=== PATIENT | female | born 1985 | race Asian ===

== ENCOUNTER → 2018-01-20 16:54 | Outpatient (CLI) | payer MEDICAID, SELFPAY ==
[2018-01-20 17:32] LABS: Free T3 3.7 pg/mL (2.18-3.98); T4 Free Direct 1.43 ng/dL (0.76-1.46); Thyroid Stim Hormone (TSH) 0.03 uIU/mL (0.358-3.74)
== END ==
PROVIDERS: Referring Provider Nurse Practitioner; Visit Provider Nurse Practitioner
DX: E03.9 Hypothyroidism, unspecified (principal)
CPT/HCPCS: 36415; 84439; 84443; 84481

== ENCOUNTER → 2018-01-25 13:52 | Outpatient (CLI) | payer MEDICAID, SELFPAY ==
--- NOTE | 2018-01-25 14:18 | US_ITS ---
STUDY: THYROID ULTRASOUND REASON FOR EXAM: Female, 32 years old. Thyromegaly. TECHNIQUE: Ultrasound evaluation of the thyroid was performed with real-time and static sauceda-scale imaging. COMPARISON: None. FINDINGS: RIGHT LOBE: The right thyroid measures 28 x 13 x 16 mm. Background echotexture is mildly heterogeneous. Vascularity is normal. The gland is not enlarged. There are 2 solid thyroid nodules, measuring 3 x 3 x 4 mm (mid polar) and 6 x 6 x 6 mm (superior pole), mildly heterogeneous echotexture, intranodular and Perinodular vascular flow, only minimally irregular margins. LEFT LOBE: The left thyroid measures 25 x 10 x 12 mm, not enlarged. Back and echotexture is mildly heterogeneous. Vascularity is normal. Solitary mid polar nodule solid, smooth margins, oval, with intranodular vascular flow, 4 x 3 x 6 mm. ISTHMUS: The isthmus measures 2 mm, normal echotexture. . US/Thyroid IMPRESSION: The thyroid gland is not enlarged. There is generalized mildly heterogeneous echotexture of the gland which could reflect sequela from thyroiditis. Acutely the gland exhibits normal vascular flow. Small bilateral thyroid nodules are present. Based on the [place] [employer] Guidelines for assessment of thyroid nodules, the solid low-density circumscribed nodules fall into the Intermediate Suspicion pattern and based on size criteria of the Intermediate Suspicion pattern, biopsy is not immediately indicated until the nodules are greater than or equal to 1 cm in size. Therefore, follow-up surveillance imaging would be most appropriate in 6 months to one year. Electronically Signed: Jaguar Daniel, at 16:16 EDT Tel , Service support ,
== END ==
PROVIDERS: Referring Provider Nurse Practitioner; Visit Provider Nurse Practitioner
DX: R94.6 Abnormal results of thyroid function studies (principal)
CPT/HCPCS: 76536

== ENCOUNTER → 2019-07-05 07:39 | Outpatient (CLI) | payer OTHER, SELFPAY ==
--- NOTE | 2019-07-05 07:44 | US_ITS ---
STUDY: THYROID ULTRASOUND REASON FOR EXAM: Female, 33 years old. NON TOXIC MULTI NOD GOITER TECHNIQUE: Ultrasound evaluation of the thyroid was performed with real-time and static sauceda-scale imaging. COMPARISON: Thyroid ultrasound January 25, 2018. FINDINGS: RIGHT LOBE: The right lobe of the thyroid gland measures 3.4 x 1.2 x 1.2 cm. There is a homogeneous echotexture. Allowing for interobserver variability, there is a stable 3.4 x 3.9 x 4.5 mm mildly hypoechoic nodule in the posterior upper to mid pole. A mildly irregular shaped 4.7 x 3.8 x 3.1 mm hypoechoic lesion is noted at the confluence of the right lobe to the thyroid isthmus. The 6 mm superior pole nodule seen on prior study is not clearly evident here. LEFT LOBE: The left lobe of the thyroid gland measures 9 x 1.3 x 1.0 cm. There is a homogeneous echotexture. A heterogeneous 4.3 x 3.8 x 3.9 mm solid nodule seen at the tip of the lower pole, not clearly evident on the prior study. The 6 mm nodule seen on previous exam was closer to the thyroid isthmus, and is only faintly suggested here. ISTHMUS: The isthmus measures 2.0 mm. The regional lymph nodes are normal. The right parathyroid or combined lobes of the parathyroid is incidentally visualized, measuring 2.0 x 1.0 x 0.5 cm. The left parathyroid is not demonstrated. US/Thyroid IMPRESSION: 1. Small bilateral thyroid nodules again identified, although not all were seen on previous exam, and some seen on previous study are not evident today. The findings remain consistent with a goiter, and one year annual follow-up is recommended. 2. Incidental note of a 2 cm hypoechoic structure posterior to the right lobe, presumed to be the enlarged right parathyroid. Electronically Signed: Jama Aparicio MD at 16:55 EDT , Service support ,
== END ==
DX: E04.2 Nontoxic multinodular goiter (principal)
CPT/HCPCS: 76536

== ENCOUNTER → 2019-11-11 09:40 | Outpatient (CLI) | payer OTHER, SELFPAY ==
[2019-11-11 11:17] LABS: Glucose 75GTT - Fasting 81 mg/dL (70-99)
[2019-11-11 11:17] LABS: Glucose 75GTT - 30 minutes 116 mg/dL (100-160)
[2019-11-11 11:19] LABS: T4 Free Direct 1.29 ng/dL (0.76-1.46); Thyroid Stim Hormone (TSH) 1.16 uIU/mL (0.358-3.74)
[2019-11-11 12:19] LABS: Glucose 75GTT - 60 minutes 83 mg/dL (100-160)
[2019-11-11 13:04] LABS: Glucose 75GTT - 120 minutes 92 mg/dL (70-140)
== END ==
DX: E03.9 Hypothyroidism, unspecified (principal); R73.09 Other abnormal glucose
CPT/HCPCS: 36415; 82951; 82952; 84439; 84443

== ENCOUNTER → 2023-06-15 | Outpatient (CLI) | payer MEDICAID, SELFPAY ==
--- OUTSIDE RECORDS SUMMARY | 2023-06-15 12:37 | XMS RPT_ITS | CCD ---
Author Name Unknown Address [address] [place] [address] Organization [facility] Care Team Providers Care Char Puller Name Role Phone Jj MARSHALL, Nic Aguilera Unavailable [phone] Pierre MARSHALL, [facility] Provide r AMIRNENI, [facility] Primary Care Unavail able AMIRNENI, [facility] [place] Attending Unavail able [facility] Attending Unavail able AMIRNENI, [facility] Primary Care Unavail able [facility] Care Unavail able AMIRNENI, [facility] [place] Attending Unavail able AMIRNENI, [facility] Attending Unavail able AMIRNENI, [facility] Primary Care Unavail able AMIRNENI, [facility] [place] Attending Unavail able AMIRNENI, [facility] [place] [facility] Primary Care Unavail able AMIRNENI, [facility] Primary Care Unavail able AMIRNENI, [facility] Attending Unavail able DOROTA CORDON Attending Unavailable SELF, SELF Referring Unavailable JONO NORTH Attending Unavailable AMIRNENI, [facility] Primary Care Unavailable SELF, SELF Referring Unavailable JONO NORTH Referring Unavailable JONO NORTH Attending Unavailable AMIRNENI, [facility] [place] Primary Care Unavailable Pierre MARSHALL, [facility] [place] Primary Care Provider Nic Gardner MD Unavailable Pierre MARSHALL, [facility] [place] [place] Primary Care Provide r PIERRE, [facility] Primary Care Unavail able AMIRNENI, ANA BECERRIL Referring Unavail able AMIRNENI, ANA BECERRIL Admitting Unavail able EMILY SNYDER Attending Unavailable JOLENERNEJOSEPHINE, ANA BECERRIL Primary Care Unavail able AMIRNENI, ANA STOKESNA Admitting Unavail able AMIRNENI, ANA BECERRIL Primary Care Unavail able AMIRNEJOSEPHINE, ANA BECERRIL Attending Unavail able AMIRNENI, ANA BECERRIL Referring Unavail able [facility] [employer] Attending Unavailable Allyson [employer], Dorota Referring Unavailable JANICE GUZMÁN Referring Unavailable Medications Current Medications Medication Drug Class(es) Dates Sig (Normalized) Sig (Original) clobetasol propionate 0.5 mg/ml topical cream (7 sources) Corticosteroid Start: 08-06-2021 clobetasoL (TEMOVATE) 0.05 % cream APPLY A THIN LAYER OF CREAM TOPICALLY TO AFFECTED AREA TWICE DAILY FOR 14 DAYS THEN 4 TIMES WEEKLY FOR MAINTANCE 0 08/06/2021 Active docusate sodium 100 mg oral capsule (7 sources) Start: 09-24-2021 take 1 capsule by mouth twice daily as needed for constipation docusate sodium (COLACE) 100 MG capsule Take 1 (one) capsule (100 mg total) by mouth 2 (two) times a day as needed for constipation . 180 capsule 3 09/24/2021 Active ketoconazole 20 mg/ml medicated shampoo (7 sources) Azole Antifungal Start: 07-03-2021 ketoconazole (NIZORAL) 2 % shampoo WASH DAILY DIRECTED 0 07/03/2021 Active levothyroxine sodium 0.075 mg oral tablet (20 sources) l-Thyroxine Start: 01-19-2023 take 1 tablet by mouth once daily levothyroxine (SYNTHROID, LEVOTHROID) 75 MCG tablet Take 1 (one) tablet (75 mcg total) by mouth once daily . 30 tablet 0 01/19/2023 Active Completed/Discontinued Medications Medication Drug Class(es) Dates Sig (Normalized) Sig (Original) 24 hr metFORMIN hydrochloride 750 mg extended release oral tablet (1 source) Biguanide Start: 11-13-2015 End: 08-15-2020 take 1 tablet by mouth every twenty-four hours metFORMIN (GLUCOPHAGE XR) 750 MG 24 hr tablet Take 750 mg by mouth. 0 11/13/2015 08/15/2020 Discontinued multivitamin (multivitamin) per tablet (4 sources) End: 03-26-2021 take 1 tablet by mouth once daily multivitamin (multivitamin) per tablet Take 1 tablet by mouth daily. 0 03/26/2021 Discontinued Problems Active Problems Problem Classification Problem Date Documented Date Episodic/Chronic Genitourinary symptoms and ill-defined conditions (4 sources) Dysuria; Translations: [Hematuria, unspecified] Onset: 12-10-2021 Episodic Immunizations and screening for infectious disease (3 sources) Patient encounter status; Translations: [Encounter for screening for human immunodeficiency virus [HIV]] Onset: 06-25-2022 Episodic Other connective tissue disease (1 source) Myalgia/myositis - lower leg; Translations: [Myalgia, other site] Episodic Other connective tissue disease (2 sources) Pain in right leg; Translations: [Pain in right leg] Onset: 05-13-2022 Episodic Other endocrine disorders (13 sources) Polycystic ovary syndrome; Translations: [Polycystic ovarian syndrome] Onset: 08-15-2020 Chronic Other endocrine disorders (1 source) Polycystic ovarian syndrome; Translations: [PCOS (polycystic ovarian syndrome)] Onset: 12-20-2015 Chronic Other nervous system disorders (2 sources) Other chronic pain; Translations: [Other chronic pain] Onset: 05-13-2022 Chronic Other nervous system disorders (1 source) Numbness of upper limb; Translations: [Anesthesia of skin] Episodic Other non-traumatic joint disorders (3 sources) Pain in right knee; Translations: [Pain in joint, lower leg] Onset: 01-28-2022 Episodic Thyroid disorders (20 sources) Acquired hypothyroidism; Translations: [Hypothyroidism, unspecified] Onset: 09-30-2012 Resolved: 03-26-2021 Chronic Urinary tract infections (2 sources) Urinary tract infection, site not specified; Translations: [Urinary tract infection, site not specified] Onset: 12-10-2021 Episodic Past or Other Problems Problem Classification Problem Date Documented Da te Episodic/Chronic Diabetes mellitus without complication (20 sources) Prediabetes; Translations: [Prediabetes] Onset: 05-27-2019 Episodic Other connective tissue disease (13 sources) Pain in lower limb; Translations: [Pain in right leg] Onset: 04-29-2022 Episodic Other gastrointestinal disorders (14 sources) Chronic constipation; Translations: [Other constipation] Onset: 08-15-2020 Episodic Other nutritional; endocrine; and metabolic disorders (1 source) Abnormal weight gain; Translations: [Abnormal weight gain] Onset: 05-27-2019 Episodic Other skin disorders (10 sources) Loss of hair; Translations: [Nonscarring hair loss, unspecified] Onset: 03-26-2021 Episodic Results Test Name Value Interpretation Reference Range Facil ity Vital Signs Date Time Vital Sign Value Performing Clinician Facility 04-29-2022 12:50-0500 Diastolic blood pressure 62 mm[Hg] Ana Jay MD Work Phone: [facility] 04-29-2022 12:50-0500 Systolic blood pressure 92 mm[Hg] Ana Jay MD Work Phone: [facility] 04-29-2022 12:40-0500 Body height 163.7 cm Ana Jay MD Work Phone: [facility] 04-29-2022 12:40-0500 Body mass index (BMI) [Ratio] 23.49 kg/m2 Ana Jay MD Work Phone: [facility] 04-29-2022 12:40-0500 Body temperature 98.2 [degF] Ana Jay MD Work Phone: [facility] 04-29-2022 12:40-0500 Body weight 62.96 kg Ana Jay MD Work Phone: [facility] 04-29-2022 12:40-0500 Heart rate 85 /min Ana Jay MD Work Phone: [facility] 04-29-2022 12:40-0500 Respiratory rate 14 /min Ana Jay MD Work Phone: [facility] 04-29-2022 12:40-0500 SaO2% (BldA) [Mass fraction] 99 % Ana Jay MD Work Phone: [facility] 01-28-2022 14:20-0400 Body height 162.6 cm Jono North DO Work Phone: [facility] 01-28-2022 14:20-0400 Body mass index (BMI) [Ratio] 23.52 kg/m2 Jono North DO Work Phone: [facility] 01-28-2022 14:20-0400 Body temperature 97.59 [degF] Jono North DO Work Phone: [facility] 01-28-2022 14:20-0400 Body weight 62.14 kg Jono North DO Work Phone: [facility] 09-24-2021 12:59-0400 Diastolic blood pressure 62 mm[Hg] Ana Jay MD Work Phone: [facility] 09-24-2021 12:59-0400 Systolic blood pressure 98 mm[Hg] Ana Jay MD Work Phone: [facility] 09-24-2021 12:45-0400 Body height 163.7 cm Ana Jay MD Work Phone: [facility] 09-24-2021 12:45-0400 Body mass index (BMI) [Ratio] 23.46 kg/m2 Ana Jay MD Work Phone: [facility] 09-24-2021 12:45-0400 Body temperature 98.2 [degF] Ana Jay MD Work Phone: [facility] 09-24-2021 12:45-0400 Body weight 62.87 kg Ana Jay MD Work Phone: [facility] 09-24-2021 12:45-0400 Heart rate 95 /min Ana Jay MD Work Phone: [facility] 09-24-2021 12:45-0400 Respiratory rate 14 /min Ana Jay MD Work Phone: [facility] 09-24-2021 12:45-0400 SaO2% (BldA) [Mass fraction] 98 % Ana Jay MD Work Phone: [facility] 03-26-2021 12:37-0500 Body height 163.8 cm Ana Jay MD Work Phone: [facility] 03-26-2021 12:37-0500 Body mass index (BMI) [Ratio] 24.47 kg/m2 Ana Jay MD Work Phone: [facility] 03-26-2021 12:37-0500 Body temperature 98.29 [degF] Ana Jay MD Work Phone: [facility] 03-26-2021 12:37-0500 Body weight 65.68 kg Ana Jay MD Work Phone: [facility] 03-26-2021 12:37-0500 Diastolic blood pressure 72 mm[Hg] Ana Jay MD Work Phone: [facility] 03-26-2021 12:37-0500 Heart rate 80 /min Ana Jay MD Work Phone: [facility] 03-26-2021 12:37-0500 Respiratory rate 14 /min Ana Jay MD Work Phone: [facility] 03-26-2021 12:37-0500 SaO2% (BldA) [Mass fraction] 98 % Ana Jay MD Work Phone: [facility] 03-26-2021 12:37-0500 Systolic blood pressure 110 mm[Hg] Ana Jay MD Work Phone: [facility] 09-19-2020 13:11-0400 Diastolic blood pressure 70 mm[Hg] Ana Jay MD Work Phone: [facility] 09-19-2020 13:11-0400 Systolic blood pressure 98 mm[Hg] Ana Jay MD Work Phone: [facility] 09-19-2020 12:48-0400 Body height 163.8 cm Ana Jay MD Work Phone: [facility] 09-19-2020 12:48-0400 Body mass index (BMI) [Ratio] 23.66 kg/m2 Ana Jay MD Work Phone: [facility] 09-19-2020 12:48-0400 Body temperature 97.7 [degF] Ana Jay MD Work Phone: [facility] 09-19-2020 12:48-0400 Body weight 63.5 kg Ana Jay MD Work Phone: [facility] 09-19-2020 12:48-0400 Heart rate 78 /min Ana Jay MD Work Phone: [facility] 09-19-2020 12:48-0400 Respiratory rate 14 /min Ana Jay MD Work Phone: [facility] 09-19-2020 12:48-0400 SaO2% (BldA) [Mass fraction] 98 % Ana Jay MD Work Phone: [facility] 08-15-2020 13:45-0400 Diastolic blood pressure 70 mm[Hg] Ana Jay MD Work Phone: [facility] 08-15-2020 13:45-0400 Systolic blood pressure 106 mm[Hg] Ana Jay MD Work Phone: [facility] 08-15-2020 13:13-0400 Body height 163.8 cm Ana Jay MD Work Phone: [facility] 08-15-2020 13:13-0400 Body mass index (BMI) [Ratio] 23.69 kg/m2 Ana Jay MD Work Phone: [facility] 08-15-2020 13:13-0400 Body temperature 97.9 [degF] Ana Jay MD Work Phone: [facility] 08-15-2020 13:13-0400 Body weight 63.59 kg Ana Jay MD Work Phone: [facility] 08-15-2020 13:130400 Heart rate 65 /min Ana Jay MD Work Phone: [facility] 08-15-2020 13:13-0400 Respiratory rate 18 /min Ana Jay MD Work Phone: [facility] 08-15-2020 13:13-0400 SaO2% (BldA) [Mass fraction] 99 % Ana Jay MD Work Phone: [facility] Encounters Encounter Date Encounter Type Care Provider Facility Start: 02-28-2023 Refill Ana Jay MD Work Phone: [facility] Start: 01-17-2023 Refill Ana Jay MD Work Phone: [facility] Start: 09-28-2022 Refill Ana Jay MD Work Phone: [facility] Start: 06-25-2022 ambulatory Dorota Allyson [employer] [place] Start: 05-13-2022 End: 05-17-2022 ambulatory ANA JAY [facility] Start: 05-13-2022 End: 05-13-2022 ambulatory Ana Jay MD Work Phone: [facility] Procedures Date Procedure Procedure Detail Performing Clinician Start: 04-29-2022 Adult depression scr eening assessment Ana Jay MD Work Phone: Start: 04-22-2021 Microscopic observat ion [Identifier] in Cervix by Cyto stain Ana Jay MD Work Phone: Start: 09-27-2020 Us soft tissue head & neck real time imge docm Ana Jay MD Work Phone: Start: 07-25-2020 ADM SARSCOV2 100MCG/0.5ML1ST Dorota Allyson [employer] Start: 07-25-2020 SARSCOV2 VAC 100MCG/ 0.5ML IM Dorota Allyson [employer] Start: 06-22-2018 Microscopic observat ion [Identifier] in Cervix by Cyto stain Ana Jay MD Work Phone: Plan of Treatment Date Care Activity Detail Author Start: 04-22-2024 Screening for malignant neoplasm of cervix Pap Smear [facility] Start: 04-29-2023 Depression screening using PHQ-9 (Patient Health Questionnaire 9) score Depression Screening (PHQ-2/9) [facility] Start: 12-26-2022 COVID-19 Vaccine () COVID-19 Vaccine () [facility] Start: 12-26-2022 Influenza vaccination [facility] Start: 11-10-2022 End: 11-10-2022 Patient encounter procedure 11/10/2022 Office Visit Primary Care Ana Jay MD [address] [place], [place] [id number] [facility] Start: 10-27-2022 Hemoglobin A1c measurement A1C [facility] Start: 10-24-2022 Influenza vaccination Sequential Influenza Vaccine (#1) [facility] Immunizations Immunization Date Immunization Notes Care Provider Fa cility 09-30-2012 pneumococcal polysac charide vaccine, 23 valent Ana Jay MD Work Phone: [facility] Payers Date Payer Category Payer Medicaid [facility] [employer] [id number] 2020-Present [id number] 2020 Medicaid [id number] 2020 Medicaid [id number] 2019 Unknown [id number] 2016 Unknown [id number] 1986 Unknown [id number] 1986 Unknown [id number] 1986 Unknown [id number] 1986 Unknown [id number] 1986 Unknown [id number] 1986 Unknown [id number] 1986 Unknown [id number] 1986 Unknown [id number] 1986 Unknown [id number] 1986 Unknown [id number] 1986 Unknown [id number] 1986 Unknown [id number] Social History Date Type Detail Facility Start: 08-15-2020 End: 12-10-2021 Tobacco smoking status NMIS Never smoker [facility] Start: 08-15-2020 End: 12-10-2021 Tobacco use and exposure Never used [facility] Start: 08-15-2020 End: 04-29-2022 Alcohol intake Lifetime non-drinker (finding) [facility] Start: 08-15-2020 End: 04-29-2022 History SDOH Alcohol Frequency 1 [facility] Start: 08-15-2020 History SDOH Alcohol Std Drinks 99 [facility] Start: 1985 [facility] Start: 09-14-2021 End: 05-06-2022 Exposure to SARS-CoV-2 (event) Not sure [facility] Start: 08-15-2020 End: 04-29-2022 Cigarette pack-years [facility] Start: 01-28-2022 Alcohol intake Current drinke r of alcohol (finding) [facility] Start: 12-10-2021 Alcohol Comment rare [facility] Start: 04-29-2022 History SDOH Financial 4 [facility] Start: 04-29-2022 History SDOH Transport Med 2 [facility] Start: 08-15-2020 End: 04-29-2022 Alcohol Use Disorder Identification Test - Consumption [AUDIT-C] [facility] How often to you hav e a drink containing alcohol? Never [facility] How many standard dr inks containing alcohol do you have on a typical day? Not asked [facility] How hard is it for y ou to pay for the very basics like food, housing, medical care, and heating Not very hard [facility] (I/We) worried [facility] (my/our) food would run out before (I/we) got money to buy more. Never true [facility] Clinical Notes 08-15-2020 to 01-19-2023 Telephone Encounter - Brunilda Davalos LPN - 01/19/2023 8:17 AM EDTTelephone Encounter - Brunilda Davalos LPN - 01/19/2023 8:17 AM EDTCnithin Snyder PT - 05/13/2022 10:45 AM EST Note Date & Type Note Facility 01-19-2023 Telephone encount er Note Tried calling pt no answer my chart message sent advising of message [facility] 01-19-2023 Miscellaneous Notes Formattin g of this note might be different from the original. Tried calling pt no answer my chart message sent advising of message Prescription is being refilled for 30 days supply. Advise patient to come in for a follow-up appointment. She canceled her last appointment documented in this encounter [facility] 01-19-2023 Telephone encount er Note Prescription is being refilled for 30 days supply. Advise patient to come in for a follow-up appointment. She canceled her last appointment [facility] 09-29-2022 Telephone encount er Note Prescription is being refilled. Advise patient to schedule a follow-up appointment in October as recommended. Not sure why she canceled her upcoming appointment in October. [facility] 09-29-2022 Miscellaneous Notes Formattin g of this note might be different from the original. Prescription is being refilled. Advise patient to schedule a follow-up appointment in October as recommended. Not sure why she canceled her upcoming appointment in October. documented in this encounter [facility] 05-13-2022 History of Presen t illness Narrative [facility] Evaluation Today's Date 05/14/2022 Patient Name: Rodrigo Dsouza Date of : 1985 Case Name: Chronic right lower extremity pain Functional Diagnosis: 1. Chronic pain of right lower extremity Clinical Information: Subjective Referring Diagnosis: Chronic R LE pain History of Present Illness Subjective History: Pt reports that she's been R leg pain x 6 months without mechanism of injury. Pt isn't able to identify any specific position / activities that increase the pain other than long distance driving (greater than 2 hours). Pt's pain is shooting in nature and is not constant. Currently not having any pain. Pt denies any numbness / tingling. Pt reports that when it hurts she lays down and sticks her legs up in the air and that seems to help. Her episodes of pain are typically an hour or so. Meloxicam did not help her - was prescribed by sports med . Pt works at [employer] - prolonged standing required Pain Scale Pain location: right leg. Average Pain: 0/10 at best. Pain at highest: 7/10 Personal Goals: Pt would like to decrease her R LE pain Functional Mobility Status Functional Limitations: recent decline in level of ADL patient reported Current Activity Level: active Premorbid Activity Level: active Lumbar Spine Gait: Comments: Unremarkable R knee AROM: WNL Mild pain reported with palpation at lateral joint line (-) Rd's Posture: reduced lordosis Trunk AROM: Movement Loss % of Loss Description Flexion 25% Extension 50% Side Gliding R Side Gliding L Test Movements Symptoms During Testing Symptoms After Testing Increase ROM Decrease ROM No Effect FIS no effect Rep FIS no effect EIS no effect Rep EIS no effect ELVIN no effect Rep ELVIN no effect EIL no effect Rep EIL no effect SGIS - R no effect Rep SGIS - R no effect SGIS - L no effect Rep SGIS - L no effect Dermatomes Sensation: grossly intact Muscle Strength: Hip Flexion Right: 5 Left: 5 Knee extension Right: 4+ Left: 5 Ankle DF Right: 4+ Left: 5 Hallux ext Right: 4+ Left: 5 Ankle PF Right: 5 Left: 5 Knee flexion Right: 4 (lateral knee pain reported) Left: 5 Hip ABD Right: 4+ Left: 4+ Special Tests Slump Right: no Slump R Left: no Slump L SLR Right: no SLR R Left: no SLR L Treatments: Physical Therapy Exercise Log - 05/14/22 0801 OTHER Precautions/Contraindications Supervising PT Emily 8 Notes R LE pain - doesn't seem to be of lumbar origin Vitals assess pt response to general LE strengthening and lumbar extension mobility Therapeutic Exercise (68052) Intervention refer to manual Parameters Prone prop then prone press ups after manual Intervention SciFit Parameters SLR flexion, abd, ext Intervention TRX squats Parameters side stepping Intervention quadruped alt legs Parameters supine bridge - - feet a little further out to isolate hamstrings (per pt tolerance) Manual Therapy (34477) Intervention Lumbar PA mobilizations global lumbar Treatment Plan: Frequency of Visits: twice per week Duration: 4 weeks Interventions: Therapeutic Exercise (60597), Neuromuscular Re-Education (44159), and Manual Therapy (69854) Rehab Potential: fair Goals: Physical Therapy Ortho Goals: 1. Pt will demonstrate improved lumbar extension ROM by at least 25%. 4 weeks. 2. Pt will report decreased intensity and frequency of right lower extremity pain by at least 50%. 4 weeks. 3. Pt will demonstrate improved R LE strength by at least 1/2 grade. 4 weeks. 4. Pt will demonstrate good adherence to HEP. 2 weeks. IE date: 05/13/2022 Progress report due: Recert due: visit # 8 Patient Education provided: anatomy Clinical Impression: CPT Code 21604 Low 32452 Moderate 80129 High History 0 1-2 3+ Comorbidities: PCOS, hypothyroidism, Personal factors: chronicity or severity of the current condition Examination of body systems (elements of body structures & functions, activity limitations, and/or participation restrictions) 1-2 elements 3+ elements 4+ elements See below clinical impression Clinical Presentation Stable Evolving Unstable As evidenced by no consistent response to assessments/interventions and reports of fluctuating symptoms over time Decision Making Low (FOTO >/= 69) Moderate (FOTO 34 - 68) High (FOTO </= 33) Not taken Pt is a 36 y.o. female who presents to PT services with c/o shooting R LE pain. Based on evaluation and repeated movement testing, the R LE pain doesn't seem to be of lumbar spine origin. Pt does demonstrated some mild R LE weakness and lumbar spine tightness into extension. Upon assessment, pt has been found with the following impairments: impaired posture, decreased ROM, decreased strength, and pain. The documented impairments result in the following functional limitations: ADLs/IADLs, functional mobility, quality of life, performance of work/school related duties, lifting for work/ADLs, and driving. The pt would benefit from skilled PT services focused on the above listed impairments and limitations in order to safely progress pt to their desired level of function. Pt to be discharged from OP PT services if/when goals are met, if they fail to make progress with conservative management in PT, if their level of progress plateaus, or if they do not maintain compliance with attendance or HEP. At this time, it is my clinical judgment that services are medically necessary. Emily Snyder PT STATE LICENSE, [id number] documented in this encounter [facility] 04-29-2022 History of Presen t illness Narrative Images from the original note were not included. Rodrigo Dsouza 1985 [id number] HPI: Patient was here today to follow-up on her chronic medical problems. Also complains of right lower extremity pain. Patient states today that she has been experiencing moderate intermittent aching pain in the entire right lower extremity but she was not able to give me specific localized pain. States that sometimes she seems to have pain in the distal thigh and proximal leg and sometimes in her foot. She has aching pain. No associated numbness, tingling sensation or extremity weakness. Pain symptoms have started almost 6 to 8 months ago without any known specific triggering or aggravating factors. Pain is episodic and usually last for 1 to 2 hours. States that sometimes the pain symptoms are triggered by walking or standing for longer periods of time. She does not have any pain today she denies any low back pain. She has seen a sports medicine doctor at [facility] almost 5 months ago and was prescribed meloxicam. She has taken this medication for 3 months without much improvement in the pain symptoms and hence stopped taking it. She also had an x-ray of the right knee ordered by sports medicine and was told that it was normal. Hypothyroidism, prediabetes: Patient has been compliant with low sugar and low-carb diet but does not do any regular aerobic exercise. Her latest hemoglobin A1c from September was at 5.4, better than the previous one. She denies any active signs and symptoms of hypo-/hyperthyroidism and her last TFTs from September were also within the normal range. Patient Active Problem List Diagnosis Prediabetes PCOS (polycystic ovarian syndrome) Acquired hypothyroidism Chronic constipation Hair loss Chronic pain of right lower extremity Past Medical History: Diagnosis Date Hypothyroidism Multiple thyroid nodules 09/19/2020 PCOS (polycystic ovarian syndrome) Salmonella bacteremia Past Surgical History: Procedure Laterality Date Laparoscopy and Hysteroscopy in [place] for fertility issues Social History Socioeconomic History Marital status: Tobacco Use Smoking status: Never Smokeless tobacco: Never Vaping Use Vaping Use: Never used Substance and Sexual Activity Alcohol use: Never Drug use: Never Social Determinants of Health Financial Resource Strain: Low Risk Difficulty of Paying Living Expenses: Not very hard Food Insecurity: No Food Insecurity Worried About Running Out of Food in the Last Year: Never true Ran Out of Food in the Last Year: Never true Transportation Needs: No Transportation Needs Lack of Transportation (Medical): No Lack of Transportation (Non-Medical): No Family History Problem Relation Age of Onset Thyroid disease Mother Review of Systems Constitutional: Negative for chills, diaphoresis, fatigue, fever and unexpected weight change. Respiratory: Negative for cough, shortness of breath and wheezing. Cardiovascular: Negative for chest pain, palpitations and leg swelling. Gastrointestinal: Negative for abdominal distention, abdominal pain, blood in stool, diarrhea, nausea and vomiting. Endocrine: Negative for cold intolerance and heat intolerance. Neurological: Negative for dizziness, light-headedness and headaches. Physical Exam: Vitals: 04/29/22 1240 04/29/22 1250 BP: (!) 88/57 92/62 BP Location: Right arm Right arm Patient Position: Sitting Sitting BP Cuff Size: Adult Adult Pulse: 85 Resp: 14 Temp: 98.2 F (36.8 C) TempSrc: Infrared SpO2: 99% Weight: 63 kg (138 lb 12.8 oz) Height: 5' 4.45 Physical Exam Constitutional: General: She is not in acute distress. Neck: Vascular: No carotid bruit. Cardiovascular: Rate and Rhythm: Normal rate and regular rhythm. Heart sounds: Normal heart sounds. No murmur heard. Pulmonary: Effort: Pulmonary effort is normal. No respiratory distress. Breath sounds: Normal breath sounds. No wheezing or rales. Abdominal: General: There is no distension. Palpations: Abdomen is soft. Tenderness: There is no abdominal tenderness. Musculoskeletal: Right lower leg: No edema. Left lower leg: No edema. Comments: No spinal or paraspinal tenderness in the lumbosacral spine, negative SLR Right lower extremity: No muscle tenderness in the thigh, leg, grossly normal muscle strength in the entire right lower extremity, normal touch sensation Assessment & Plan: 1. Acquired hypothyroidism Comprehensive Metabolic Panel TSH T4, Free 2. Prediabetes Comprehensive Metabolic Panel Hemoglobin A1c 3. Chronic pain of right lower extremity Ambulatory Ref to [facility] (PT/OT/ST) Hypothyroidism: Seems to be stable with latest TFTs within normal range. Continue same dose of levothyroxine. Prescription was refilled today. Prediabetes: Seems to be stable with some improvement in hemoglobin A1c. Encouraged for compliance with low sugar/low-carb diet. Repeat hemoglobin A1c was also ordered today. Chronic right lower extremity pain: Possibly secondary to tendinitis. Does not appear to have sciatica pain. Discussed various possible etiology for her pain symptoms and she was referred to physical therapy trial. Return in about 6 months (around 10/27/2022), or if symptoms worsen or fail to improve. Patient education & instructions given for: Advised patient about possible common adverse-effects from the medications, but also recommended to review the medication information package inserts for complete list of adverse effects/contraindications, drug interactions etc., before starting any new medication. Patient was also advised to immediately discontinue the medication and notify us or go to a nearby ER if experiencing any severe adverse affects from the medications. All the addressed problems were discussed with the patient and advice given to call with any concerns or return to the office or go to a nearby ER if the symptoms do not improve or worsen or new symptoms develop. If any referrals were placed or tests ordered at today's visit, the patient was instructed to call the office if they are not notified about the scheduling of referral or tests, within 2 weeks of today's visit. Health maintenance/preventive screening reviewed / ordered: Offered age-appropriate preventive services and screening. Please note: Portions of this chart may have been created with [employer] voice recognition software. Occasional wrong-word or sound-like substitutions may have occurred due to inherent limitations of the voice recognition software. Please read the chart carefully and recognize, using context, where the substitutions have occurred. documented in this encounter [facility] 01-28-2022 History of Presen t illness Narrative Review of Systems Constitutional: Negative for chills, fatigue and fever. Cardiovascular: Negative for leg swelling. Musculoskeletal: Positive for myalgias. Negative for arthralgias, back pain, joint swelling and neck pain. Skin: Negative for rash. Neurological: Positive for weakness and numbness. Hematological: Does not bruise/bleed easily. 01/28/22 Subjective: Patient is a 36-year old female who states she has right knee pain with full extension for about 2 months with no precipitating trauma or cause. The pain is appreciated in the posterior aspect of the knee, and to a lesser extent the anterior knee where the patella is. She doesn't have a great deal of medial or lateral pain. She denies swelling or laxity of the right knee. She states it is a waxing and waning pain that only bothers her with weight bearing. To control the pain she rests from weight bearing. She has not tried any medications to a significant degree for this concern. She also states when talking on the phone, her right upper extremity often goes numb. She finds it an uncomfortable numbness, but denies a true pain. It usually occurs with her right elbow bent. The same phenomenon occurs if she is driving long distances and her right hand on the steering wheel for 30-60 minutes. This uncomfortable numbness gets better immediately with a change in position. She denies a restricted range of motion of any of the joints of the right upper extremity or swelling. She denies accompanying neck pain. Objective: General: Patient is alert and oriented x 3. Normal mood and affect. Good historian. Neck exam: Spurling's maneuver: Negative Left & Right. No palpable tenderness of the neck. Grossly Normal Range of Motion for cervical rotation left & right without pain or apprehension. Note there are no gross motor deficits for the bilateral shoulders, elbows, forearms, wrists or hands. Soft touch sensation and skin are entirely intact throughout the bilateral upper extremities. Radial pulse +2/4. No significant tenderness of the upper extremities bilaterally. Right Knee: Intact strength and range of motion for flexion and extension. Mild pain in the posterior aspect of the knee with full active or passive extension of 0 degrees. No significant crepitus. Good endpoint on Soha's test. Negative Rd s test. No pain or laxity with varus or valgus stress. Soft touch sensation and skin are entirely intact. There is no warmth, erythema or effusion. Patient has a nonantalgic, symmetric gait. Diagnostic Studies: 3 view right knee x-ray series was done today. On the AP standing view and sunrise view, we also saw the left knee. The only remarkable finding is some minimal sclerotic changes at the medial tibial plateau for both the left and right knee which is what I would say is a standard expected age-related change. No acute osseous injury. Soft tissues are unremarkable. No degenerative changes bilaterally. Medical Decision Making/Plan: The patient probably has a sprain or soft tissue injury of her right knee. This came on without trauma. This could be an overuse injury as well and it seems to be provoked by extreme extension. I feel it is appropriate to give her therapeutic exercises for sprain/strain of the calf/knee region. She was given the option of formal physical therapy and declined it, so I gave her a home exercise program. After discussing this pain is most likely of a myalgia or myotendinous origin, I suggested trying an NSAID and she accepted a prescription for Meloxicam to be taken daily. She may take Tylenol for breakthrough pain. I will see her back in 4 weeks' time to monitor her progress with regard to the right knee. The patient appears to have a positional peripheral nerve compression that is quickly alleviated with change in position of the right upper extremity. I recommend modification of the position of her right upper extremity when talking on the phone or when driving. I explained to her that I didn't think a nerve conduction test and EMG would have any diagnostic value at this time because the symptoms resolve with change in position, thus not suggestive of cervical radiculopathy or serious radiculopathy. She verbalized understanding. She will try modification of her behaviors to see if that helps and report back to me with regard to the right upper extremity as well in 4 weeks. Diagnosis: 1. Acute pain of right knee 2. Myalgia, lower leg documented in this encounter [facility] 09-24-2021 History of Presen t illness Narrative Images from the original note were not included. Rodrigo Meet 1985 [id number] HPI: Patient was here today to follow-up on her chronic medical problems. Hypothyroidism, prediabetes, chronic constipation: Patient has been compliant with prescribed medications without any significant adverse effects. She also has been compliant with low sugar and low-carb diet though she does not do regular aerobic exercise. But she has lost nearly 7 pounds since after her last visit here. Her last hemoglobin A1c from February was in the prediabetic range at 5.7. Her latest TFTs from June were within the normal range. She still continues to have intermittent symptoms of constipation with hard stools. She currently does not take any OTC medications for constipation. Patient Active Problem List Diagnosis Prediabetes PCOS (polycystic ovarian syndrome) Acquired hypothyroidism Chronic constipation Hair loss Past Medical History: Diagnosis Date Hypothyroidism Multiple thyroid nodules 09/19/2020 PCOS (polycystic ovarian syndrome) Salmonella bacteremia Past Surgical History: Procedure Laterality Date Laparoscopy and Hysteroscopy in [facility] for fertility issues Social History Socioeconomic History Marital status: Tobacco Use Smoking status: Never Smokeless tobacco: Never Vaping Use Vaping Use: Never used Substance and Sexual Activity Alcohol use: Never Drug use: Never Family History Problem Relation Age of Onset Thyroid disease Mother Review of Systems Constitutional: Negative for chills, diaphoresis, fatigue, fever and unexpected weight change. Respiratory: Negative for cough, shortness of breath and wheezing. Cardiovascular: Negative for chest pain, palpitations and leg swelling. Gastrointestinal: Negative for abdominal distention, abdominal pain, blood in stool, diarrhea, nausea and vomiting. Endocrine: Negative for cold intolerance and heat intolerance. Neurological: Negative for dizziness, light-headedness and headaches. Physical Exam: Vitals: 09/24/21 1245 09/24/21 1259 BP: 90/60 98/62 BP Location: Right arm Right arm Patient Position: Sitting Sitting BP Cuff Size: Adult Adult Pulse: 95 Resp: 14 Temp: 98.2 F (36.8 C) TempSrc: Infrared SpO2: 98% Weight: 62.9 kg (138 lb 9.6 oz) Height: 5' 4.45 Physical Exam Constitutional: General: She is not in acute distress. Neck: Vascular: No carotid bruit. Comments: No thyromegaly, possible small thyroid nodules in the right side of the thyroid gland Cardiovascular: Rate and Rhythm: Normal rate and regular rhythm. Heart sounds: Normal heart sounds. No murmur heard. Pulmonary: Effort: Pulmonary effort is normal. No respiratory distress. Breath sounds: Normal breath sounds. No wheezing or rales. Abdominal: General: Abdomen is flat. Bowel sounds are normal. There is no distension. Palpations: Abdomen is soft. Tenderness: There is no abdominal tenderness. Musculoskeletal: Right lower leg: No edema. Left lower leg: No edema. Assessment & Plan: 1. Acquired hypothyroidism TSH T4, Free Basic Metabolic Panel CBC and Differential US Thyroid Only 2. Prediabetes Hemoglobin A1c 3. Chronic constipation Hypothyroidism: Seems to be stable with latest TFTs within normal range. She probably may have Tessie's thyroiditis since her latest lab test showed elevated TPO antibodies. Continue same dose of levothyroxine as her latest TFTs from June were within the normal range. Prescription was refilled today. Also ordered repeat thyroid ultrasound since patient seems to have palpable thyroid nodules on examination. Ordered repeat TFTs also. Prediabetes: Seems to be stable with latest hemoglobin A1c from February around 5.7. Encouraged for compliance with low sugar/low-carb diet. She seems to have lost some weight since after her last visit. Expecting that her hemoglobin A1c would be better. I have discussed medication treatment options for PCOS and prediabetes. We decided to recheck on her hemoglobin A1c and then decide further treatment/management based on the lab test results. Chronic constipation: Patient still continues to have some symptoms of constipation. She was encouraged for adequate amounts of water intake and also high-fiber rich diet with fruits and vegetables. She was also given a prescription for Colace. Return in about 6 months (around 03/26/2022), or if symptoms worsen or fail to improve. Patient education & instructions given for: Advised patient about possible common adverse-effects from the medications, but also recommended to review the medication information package inserts for complete list of adverse effects/contraindications, drug interactions etc., before starting any new medication. Patient was also advised to immediately discontinue the medication and notify us or go to a nearby ER if experiencing any severe adverse affects from the medications. All the addressed problems were discussed with the patient and advice given to call with any concerns or return to the office or go to a nearby ER if the symptoms do not improve or worsen or new symptoms develop. If any referrals were placed or tests ordered at today's visit, the patient was instructed to call the office if they are not notified about the scheduling of referral or tests, within 2 weeks of today's visit. Health maintenance/preventive screening reviewed / ordered: Offered age-appropriate preventive services and screening. Please note: Portions of this chart may have been created with [employer] voice recognition software. Occasional wrong-word or sound-like substitutions may have occurred due to inherent limitations of the voice recognition software. Please read the chart carefully and recognize, using context, where the substitutions have occurred. documented in this encounter [facility] 03-26-2021 History of Presen t illness Narrative Images from the original note were not included. Rodrigo Dsouza 1985 [id number] HPI: Patient was here today to follow-up on her chronic medical problems and also complains of hair loss. Patient states today that she has been experiencing persistent symptoms of hair loss almost for the past 6 to 8 months. States that she also seems to have some itching and scaling of the scalp intermittently. She would like to see a ditch rider for treatment of this condition, hence requesting a referral to them. Hypothyroidism, prediabetes: Patient has been compliant with the prescribed dose of levothyroxine without any significant adverse effects and denies significant symptoms of hypo-/hyperthyroidism except for mild intermittent chronic constipation and hair loss as mentioned above. She did not get the repeat lab test done that were ordered at her last follow-up visit in August. She has not been compliant with low sugar/low-carb diet and also does not do any regular aerobic exercise. Her last hemoglobin A1c from July was at 5.5. Patient Active Problem List Diagnosis Prediabetes PCOS (polycystic ovarian syndrome) Acquired hypothyroidism Chronic constipation Hair loss Past Medical History: Diagnosis Date Hypothyroidism Multiple thyroid nodules 09/19/2020 PCOS (polycystic ovarian syndrome) Salmonella bacteremia Past Surgical History: Procedure Laterality Date Laparoscopy and Hysteroscopy in [facility] for fertility issues Social History Socioeconomic History Marital status: Tobacco Use Smoking status: Never Smoker Smokeless tobacco: Never Used Vaping Use Vaping Use: Never used Substance and Sexual Activity Alcohol use: Never Drug use: Never Family History Problem Relation Age of Onset Thyroid disease Mother Review of Systems Constitutional: Negative for chills, diaphoresis, fatigue, fever and unexpected weight change. Respiratory: Negative for cough, shortness of breath and wheezing. Cardiovascular: Negative for chest pain, palpitations and leg swelling. Gastrointestinal: Negative for abdominal pain, blood in stool, diarrhea, nausea and vomiting. Endocrine: Negative for cold intolerance and heat intolerance. Neurological: Negative for dizziness, light-headedness and headaches. Physical Exam: Vitals: 03/26/21 1237 BP: 110/72 BP Location: Right arm Patient Position: Sitting BP Cuff Size: Adult Pulse: 80 Resp: 14 Temp: 98.3 F (36.8 C) TempSrc: Infrared SpO2: 98% Weight: 65.7 kg (144 lb 12.8 oz) Height: 5' 4.5 Physical Exam Constitutional: General: She is not in acute distress. Neck: Vascular: No carotid bruit. Cardiovascular: Rate and Rhythm: Normal rate and regular rhythm. Pulses: Normal pulses. Heart sounds: Normal heart sounds. No murmur heard. Pulmonary: Effort: Pulmonary effort is normal. No respiratory distress. Breath sounds: Normal breath sounds. No wheezing or rales. Abdominal: Palpations: Abdomen is soft. Tenderness: There is no abdominal tenderness. Musculoskeletal: Right lower leg: No edema. Left lower leg: No edema. Skin: Comments: Scalp: No significant skin rash or scaling noted today, no patchy hair loss Assessment & Plan: 1. Acquired hypothyroidism 2. Prediabetes 3. Hair loss Ambulatory referral to Dermatology Hypothyroidism: Seems to be stable without significant active clinical symptoms except for hair loss and mild intermittent constipation. Patient was advised to get the repeat TFTs as ordered at her last follow-up visit. Will address further management and dose of levothyroxine based on the repeat TFT results. Continue same dose of levothyroxine for now. Prediabetes: Some improvement in hemoglobin A1c based on her last labs from July. Patient was again counseled for low sugar/low-carb diet and encouraged for regular aerobic exercise. Advised to get the repeat lab test done that were ordered at her last visit in August. Hair loss: Discussed possible etiology for hair loss including hypothyroidism, hormonal imbalance, stress, nutritional deficiencies etc. Patient would like to see dermatology for treatment of her hair loss and hence a referral was placed today. Latest thyroid ultrasound results were reviewed and discussed with patient. Return in about 6 months (around 09/23/2021), or if symptoms worsen or fail to improve. Patient education & instructions given for: Advised patient about possible common adverse-effects from the medications, but also recommended to review the medication information package inserts for complete list of adverse effects/contraindications, drug interactions etc., before starting any new medication. Patient was also advised to immediately discontinue the medication and notify us or go to a nearby ER if experiencing any severe adverse affects from the medications. All the addressed problems were discussed with the patient and advice given to call with any concerns or return to the office or go to a nearby ER if the symptoms do not improve or worsen or new symptoms develop. If any referrals were placed or tests ordered at today's visit, the patient was instructed to call the office if they are not notified about the scheduling of referral or tests, within 2 weeks of today's visit. Health maintenance/preventive screening reviewed / ordered: Offered age-appropriate preventive services and screening. Patient has not seen DIVER ASSISTANT here yet and hence she was again provided contact information for local DIVER ASSISTANT [facility] and advised her to establish care with them. Please note: Portions of this chart may have been created with [employer] voice recognition software. Occasional wrong-word or sound-like substitutions may have occurred due to inherent limitations of the voice recognition software. Please read the chart carefully and recognize, using context, where the substitutions have occurred. documented in this encounter [facility] 09-19-2020 History of Presen t illness Narrative Images from the original note were not included. Rodrigo Dsouza 1985 [id number] HPI: Patient was here today to follow-up on her chronic medical problems and recent lab test results. Hypothyroidism, prediabetes: Patient has been compliant with the prescribed dose of levothyroxine without any significant adverse effects and denies any active signs and symptoms of hypo-/hyperthyroidism. Her latest TFTs from July were within the normal range. She has been compliant with low sugar diet but does not do any exercise. Her latest hemoglobin A1c is slightly better than the previous one at 5.5 but fasting blood sugar was elevated in the prediabetic range at 103. Patient's last thyroid ultrasound from June 2019 showed multiple bilateral thyroid nodules with goiter and also a possible right parathyroid gland enlargement. Patient Active Problem List Diagnosis Prediabetes PCOS (polycystic ovarian syndrome) Acquired hypothyroidism Chronic constipation Right thyroid nodule Multiple thyroid nodules Past Medical History: Diagnosis Date Hypothyroidism PCOS (polycystic ovarian syndrome) Salmonella bacteremia Past Surgical History: Procedure Laterality Date Laparoscopy and Hysteroscopy in [facility] for fertility issues Social History Socioeconomic History Marital status: Spouse name: Not on file Number of children: Not on file Years of education: Not on file Highest education level: Not on file Occupational History Not on file Tobacco Use Smoking status: Never Smoker Smokeless tobacco: Never Used Substance and Sexual Activity Alcohol use: Never Drug use: Never Sexual activity: Not on file Other Topics Concern Not on file Social History Narrative Not on file Social Determinants of Health Financial Resource Strain: Difficulty of Paying Living Expenses: Food Insecurity: Worried About Running Out of Food in the Last Year: Ran Out of Food in the Last Year: Transportation Needs: Lack of Transportation (Medical): Lack of Transportation (Non-Medical): Physical Activity: Days of Exercise per Week: Minutes of Exercise per Session: Stress: Feeling of Stress : Social Connections: Frequency of Communication with Friends and Family: Frequency of Social Gatherings with Friends and Family: Attends Mosque Services: Active Member of Clubs or Organizations: Attends Club or Organization Meetings: Marital Status: Family History Problem Relation Age of Onset Thyroid disease Mother Review of Systems Constitutional: Negative for chills, diaphoresis, fatigue, fever and unexpected weight change. Respiratory: Negative for cough, shortness of breath and wheezing. Cardiovascular: Negative for chest pain, palpitations and leg swelling. Gastrointestinal: Negative for abdominal pain, blood in stool, diarrhea, nausea and vomiting. Endocrine: Negative for cold intolerance and heat intolerance. Neurological: Negative for dizziness, light-headedness and headaches. Physical Exam: Vitals: 09/19/20 1248 09/19/20 1311 BP: 99/67 98/70 BP Location: Right arm Patient Position: Sitting BP Cuff Size: Adult Pulse: 78 Resp: 14 Temp: 97.7 F (36.5 C) TempSrc: Infrared SpO2: 98% Weight: 63.5 kg (140 lb) Height: 5' 4.5 Physical Exam Constitutional: General: She is not in acute distress. Neck: Thyroid: No thyromegaly. Cardiovascular: Rate and Rhythm: Normal rate and regular rhythm. Pulses: Normal pulses. Heart sounds: Normal heart sounds. No murmur heard. Pulmonary: Effort: Pulmonary effort is normal. No respiratory distress. Breath sounds: Normal breath sounds. No wheezing or rales. Abdominal: Palpations: Abdomen is soft. Tenderness: There is no abdominal tenderness. Assessment & Plan: 1. Acquired hypothyroidism CBC and Differential Comprehensive Metabolic Panel TSH T4, Free 2. Prediabetes Hemoglobin A1c 3. Multiple thyroid nodules US Thyroid Only Hypothyroidism: Seems to be stable and under control with latest TFTs within the normal range. Continue same dose of levothyroxine. Prescription was refilled today. Will repeat TFTs in 6 months. Multiple thyroid nodules: Seems to have small bilateral thyroid nodules with a possible mild goiter. Discussed last thyroid ultrasound from 2019. Ordered a repeat follow-up thyroid ultrasound to check on the status of thyroid nodules and goiter and also a possible enlarged right parathyroid gland. Prediabetes: Some improvement in hemoglobin A1c though fasting blood sugar still slightly elevated. Patient was again counseled for low sugar/low-carb diet and encouraged for regular aerobic exercise. Patient's lab did not draw the CBC though it was ordered at her last visit and hence it was reordered again today. Return in about 6 months (around 03/22/2021), or if symptoms worsen or fail to improve. Patient education & instructions given for: Advised patient about possible common adverse-effects from the medications, but also recommended to review the medication information package inserts for complete list of adverse effects/contraindications, drug interactions etc., before starting any new medication. Patient was also advised to immediately discontinue the medication and notify us or go to a nearby ER if experiencing any severe adverse affects from the medications. All the addressed problems were discussed with the patient and advice given to call with any concerns or return to the office or go to a nearby ER if the symptoms do not improve or worsen or new symptoms develop. If any referrals were placed or tests ordered at today's visit, the patient was instructed to call the office if they are not notified about the scheduling of referral or tests, within 2 weeks of today's visit. Health maintenance/preventive screening reviewed / ordered: Offered age-appropriate preventive services and screening. Patient has not seen DIVER ASSISTANT here yet and hence she was again provided contact information for [facility] and advised her to establish care with them. Please note: Portions of this chart may have been created with [employer] voice recognition software. Occasional wrong-word or sound-like substitutions may have occurred due to inherent limitations of the voice recognition software. Please read the chart carefully and recognize, using context, where the substitutions have occurred. documented in this encounter [facility] 08-15-2020 History of Presen t illness Narrative Rodrigo Dsouza 1985 [id number] HPI: Patient was here today to establish primary medical care with me and to follow-up on her chronic medical problems. Patient has a known diagnosed history of hypothyroidism at least for the past 10 years and she is currently taking levothyroxine without any adverse effects. Denies any active signs and symptoms of hypo-/hyperthyroidism except for chronic constipation, for which patient is currently taking OTC fiber supplements. Patient states that her last thyroid tests were done more than a year ago at [facility]. Her review of [facility] labs from 2019 indicated slightly elevated TSH but a normal free T4. Patient also has a known history of right thyroid nodule based on her last thyroid ultrasound from 2014. Patient stated that she had a repeat thyroid ultrasound done in 2019 at [facility]. Patient also has a history of PCOS and used to have irregular menstrual cycles but now her menstrual periods seem to be more regular. She was prescribed Metformin in the past but patient has never started taking the medication. Her last hemoglobin A1c from April 2019 was in the prediabetic range at 5.7. Patient Active Problem List Diagnosis Prediabetes PCOS (polycystic ovarian syndrome) Acquired hypothyroidism Chronic constipation Right thyroid nodule Past Medical History: Diagnosis Date Hypothyroidism PCOS (polycystic ovarian syndrome) Salmonella bacteremia Past Surgical History: Procedure Laterality Date Laparoscopy and Hysteroscopy in [place] for fertility issues Social History Socioeconomic History Marital status: Spouse name: Not on file Number of children: Not on file Years of education: Not on file Highest education level: Not on file Occupational History Not on file Social Needs Financial resource strain: Not on file Food insecurity Worry: Not on file Inability: Not on file Transportation needs Medical: Not on file Non-medical: Not on file Tobacco Use Smoking status: Never Smoker Smokeless tobacco: Never Used Substance and Sexual Activity Alcohol use: Never Frequency: Never Binge frequency: Never Drug use: Never Sexual activity: Not on file Lifestyle Physical activity Days per week: Not on file Minutes per session: Not on file Stress: Not on file Relationships Social connections Talks on phone: Not on file Gets together: Not on file Attends lutheran service: Not on file Active member of club or organization: Not on file Attends meetings of clubs or organizations: Not on file Relationship status: Not on file Other Topics Concern Not on file Social History Narrative Not on file Family History Problem Relation Age of Onset Thyroid disease Mother Review of Systems Constitutional: Negative for chills, diaphoresis, fatigue, fever and unexpected weight change. Respiratory: Negative for cough, shortness of breath and wheezing. Cardiovascular: Negative for chest pain, palpitations and leg swelling. Gastrointestinal: Negative for abdominal pain, blood in stool, diarrhea, nausea and vomiting. Endocrine: Negative for cold intolerance and heat intolerance. Neurological: Negative for dizziness, light-headedness and headaches. Physical Exam: Vitals: 08/15/20 1313 08/15/20 1345 BP: 99/71 106/70 Pulse: 65 Resp: 18 Temp: 97.9 F (36.6 C) TempSrc: Infrared SpO2: 99% Weight: 63.6 kg (140 lb 3.2 oz) Height: 5' 4.5 Physical Exam Constitutional: She appears well-nourished. No distress. Neck: Carotid bruit is not present. No thyromegaly present. Positive 1.5 cm nontender thyroid nodule in the right side of the thyroid gland Cardiovascular: Normal rate, regular rhythm, normal heart sounds and intact distal pulses. No murmur heard. Pulmonary/Chest: Effort normal and breath sounds normal. No respiratory distress. She has no wheezes. She has no rales. Abdominal: Soft. Bowel sounds are normal. She exhibits no distension. There is no hepatosplenomegaly. There is no abdominal tenderness. There is no CVA tenderness. Musculoskeletal: General: No edema. Skin: Skin is warm and dry. Psychiatric: She has a normal mood and affect. Her behavior is normal. Judgment and thought content normal. Assessment & Plan: 1. Acquired hypothyroidism CBC and Differential Comprehensive Metabolic Panel TSH T4, Free 2. PCOS (polycystic ovarian syndrome) 3. Prediabetes Hemoglobin A1c 4. Chronic constipation 5. Right thyroid nodule 6. Encounter for screening for HIV HIV 1/2 Screen (4th Generation) 7. Need for hepatitis C screening test Hepatitis C Antibody Hypothyroidism: Seems to be stable except for some symptoms of chronic constipation. Continue same dose of levothyroxine. Repeat TFTs were ordered today. Will address further management based on the repeat lab test results. Last available lab test results from [facility] were reviewed and discussed with patient. Right thyroid nodule: I have reviewed patient's last thyroid ultrasound from [facility] done in 2014 and discussed the results with her. Discussed possible complications from thyroid nodules. We will try to obtain her latest thyroid ultrasound from [facility] done in 2019. PCOS and prediabetes: I have had a long discussion about possible pathophysiology of PCOS, insulin resistance and also underlying pathology of prediabetes/diabetes. Patient was counseled for low sugar/low-carb diet, regular aerobic exercise. Ordered a repeat hemoglobin A1c. She does not seem to have significant active clinical symptoms of PCOS at this time. She will continue to follow-up with DIVER ASSISTANT also. Chronic constipation: Patient was counseled for high-fiber rich diet, adequate amounts of water intake. Discussed HIV and hepatitis C screening, patient was agreeable for this. Hence, lab tests were ordered today. Return in about 1 month (around 09/14/2020), or if symptoms worsen or fail to improve. Patient education & instructions given for: Advised patient about possible common adverse-effects from the medications, but also recommended to review the medication information package inserts for complete list of adverse effects/contraindications, drug interactions etc., before starting any new medication. Patient was also advised to immediately discontinue the medication and notify us or go to a nearby ER if experiencing any severe adverse affects from the medications. All the addressed problems were discussed with the patient and advice given to call with any concerns or return to the office or go to a nearby ER if the symptoms do not improve or worsen or new symptoms develop. If any referrals were placed or tests ordered at today's visit, the patient was instructed to call the office if they are not notified about the scheduling of referral or tests, within 2 weeks of today's visit. Health maintenance/preventive screening reviewed / ordered: Offered age-appropriate preventive services and screening. Please note: Portions of this chart may have been created with [employer] voice recognition software. Occasional wrong-word or sound-like substitutions may have occurred due to inherent limitations of the voice recognition software. Please read the chart carefully and recognize, using context, where the substitutions have occurred. documented [facility] Diagnosis Acquired hypothyroidism- Primary Unspecified hypothyroidism Prediabetes Other abnormal glucose Multiple thyroid nodules Nontoxic multinodular goiter [facility] Multiple thyroid nodules Nontoxic multinodular goiter [facility] Diagnosis Acquired hypothyroidism- Primary Unspecified hypothyroidism Prediabetes Other abnormal glucose Hair loss Unspecified alopecia [facility] [place] [facility] Diagnosis Acquired hypothyroidism- Primary Unspecified hypothyroidism Prediabetes Other abnormal glucose Chronic constipation Unspecified constipation [facility] [place] [facility] Diagnosis Acute pain of right knee- Primary Myalgia, lower leg RUE numbness Disturbance of skin sensation [facility] [place] [facility] Diagnosis Acquired hypothyroidism- Primary Unspecified hypothyroidism Prediabetes Other abnormal glucose Chronic pain of right lower extremity [facility] Diagnosis Chronic pain of right lower extremity documented in this encounter [facility] Advance Directives No Advanced Directives Records FoundDocuments on File Type Date Recorded Patient [employer] Advance Directives and Living Will Documents on File Type Date Recorded Patient [employer] Advance Directives and Living Will Documents on File Type Date Recorded Patient [employer] Advance Directives and Livin g Will 09/27/2020 4:13 PM Documents on File Type Date Recorded Patient [employer] Advance Directives and Livin g Will 09/27/2020 4:13 PM Reason for Referral Status Reason Specialty Diagnoses / Procedures Referred By Contact Referred To Contact New Request Radiology Diagnoses Multiple thyroid nodules Procedures US Thyroid Only Ana Jay MD [address] [place] [address] Specialty Diagnoses / Procedures Referred By Contac t Referred To Contact Dermatology Diagnoses Hair loss Ana Jay MD [address] [place] [address] Referral ID Status Reason Start Date Expiration Date Visits Requested Visits Authorized [id number] Authorized Specialty Services Required/Pat ient's Best Interest 03/26/2022 1 1 Specialty Diagnoses / Procedures Referred By Contac t Referred To Contact Radiology Diagnoses Acquired hypothyroidism Procedures US Thyroid Only Ana Jay MD [address] [place] [address] [address] [address] [place] [address] Referral ID Status Reason Start Date Expiration Date V isits Requested Visits Authorized [id number] Authorized 09/25/2021 09/25/2022 1 1 Specialty Diagnoses / Procedures Referred By Contac t Referred To Contact Rehabilitation Diagnoses Chronic pain of right lower extremity Ana Jay MD [address] [place] [address] Referral ID Status Reason Start Date Expiration Date V isits Requested Visits Authorized [id number] Authorized 04/29/2022 04/29/2023 1 1 Summary Purpose Family History No Family History Records FoundNo Family History Records FoundNo Family History Records FoundNo Family History Records FoundNo Family History Records FoundNo Family History Records Found Additional Source Comments Reason for Visit (unrecogniz ed section and content) Reason Comments Follow-up F/U on chronic medic al problems Status Reason Specialty Diagnoses / Procedures Referred By Contact Referred To Contact New Request Radiology Diagnoses Multiple thyroid nodules Procedures US Thyroid Only Ana Jay MD [address] [place] [address] Reason Comments New Patient Right knee pain ongo ing for 2 months Reason Comments Follow-up F/U on chronic medic al problems Right lower EXT pain Reason Comments Physical Therapy Specialty Diagnoses / Procedures Referred By Contac t Referred To Contact Rehabilitation Diagnoses Chronic pain of right lower extremity Ana Jay MD [address] [place] [address] [facility] [address] [place] [phone] Referral ID Status Reason Start Date Expiration Date Visits Re quested Visits Authorized [id number] Closed 04/29/2022 04/29/2023 8 1 Reason Onset Date Comments Medication Refill 09/28/2022 Reason Onset Date Comments Medication Refill 01/17/2023 Reason Onset Date Comments Medication Refill 02/28/2023 Care Teams (unrecognized sec tion and content) Char Puller Relationship Specialty Start Date End Date Ana Jay MD PCP - General Internal Medicine 08/15/20 Nic Gardner MD Referring Physician General Surgery 05/20/16 Char Puller Relationship Specialty Start Date End Date Ana Jay MD PCP - General Internal Medicine 08/15/20 Nic Gardner MD Referring Physician General Surgery 05/20/16 Char Puller Relationship Specialty Start Date End Date Ana Jay MD [address] [place] [id number] PCP - General Internal Medicine 12/10/21 Char Puller Relationship Specialty Start Date End Date Ana Jay MD [address] [place] [address] PCP - General Internal Medicine 08/15/20 Nic Gardner MD [address] [place] [address] Referring Physician General Surgery 05/20/16 Char Puller Relationship Specialty Start Date End Date Ana Jay MD [address] [place] [address] PCP - General Internal Medicine 08/15/20 Nic Gardner MD [address] [place] [address] Referring Physician General Surgery 05/20/16 Char Puller Relationship Specialty Start Date End Date Ana Jay MD [address] [place] [address] PCP - General Internal Medicine 08/15/20 Nic Gardner MD [address] [place] [address] Referring Physician General Surgery 05/20/16 Char Puller Relationship Specialty Start Date End Date Ana Jay MD [address] [place] [address] PCP - General Internal Medicine 08/15/20 Nic Gardner MD [address] [place] [address] Referring Physician General Surgery 05/20/16 Char Puller Relationship Specialty Start Date End Date Ana Jay MD [address] [place] [address] PCP - General Internal Medicine 08/15/20 Nic Gardner MD [address] [place] [address] Referring Physician General Surgery 05/20/16 INFORMATION SOURCE (unrecogn ized section and content) DATE CREATED AUTHOR AUTHOR'S ORGANIZ ATION 12/18/2021 [facility] DATE CREATED AUTHOR AUTHOR'S ORGANIZ ATION 02/04/2022 [facility] DATE CREATED AUTHOR AUTHOR[facility]S [facility]IZ AT[facility] DATE CREATED AUTHOR AUTHOR'S ORGANIZ ATION 06/26/2022 [facility] DATE CREATED AUTHOR AUTHOR'S ORGANRAYSA ATION 03/09/2023 [facility] FOR RECORDS PERTAINING TO PATIENTS WHO ARE OR HAVE BEEN ENROLLED IN A CHEMICAL DEPENDENCY/SUBSTANCEABUSE PROGRAM, SOME INFORMATION MAY BE OMITTED. This clinical summary was aggregated from multiple sources. Caution should be exercised in using it in the provision of clinical care. This summary normalizes information from multiple sources, and as a consequence, information in this document may materially change the coding, format and clinical context of patient data. In addition, data may be omitted in some cases. CLINICAL DECISIONS SHOULD BE BASED ON THE PRIMARY CLINICAL RECORDS. [facility] [employer] [facility] provides no warranty or guarantee of the accuracy or completeness of information in this document.
[2023-06-15 15:36] LABS: Absolute Lymphocyte Count 1.14 X10^3/uL (0.83-4.51); Absolute Neutrophil Count 5.7 X10^3/uL (2.0-7.7); Basophil# 0.05 X10^3/uL; Basophil% 0.7 % (0-1); Eosinophil# 0.06 X10^3/uL; Eosinophils% 0.8 % (0-5); Hematocrit 41.7 % (37-47); Hemoglobin 13.2 g/dL (12.0-15.0); Lymphocyte # 1.14 X10^3/ul (0.83-4.51); Lymphocyte % 14.9 % (19-41); Mean Corp Hgb Conc 31.7 g/dL (32-36); Mean Corpuscular Volume 88.3 fL (81-99); Monocyte# 0.66 X10^3/uL; Monocyte% 8.6 % (0-10); NRBC Flagged by Analyzer 0 % (0-5); Neutrophil # 5.71 X10^3/uL (2.7-7.7); Neutrophil % 74.3 % (47-70); Platelet Count 344 K/mm3 (150-450); RBC Distribution Width SD 42.1 fl (35.1-43.9); Red Blood Count 4.72 M/mm3 (4.2-5.4); White Blood Count 7.7 K/mm3 (4.4-11.0)
[2023-06-15 16:03] LABS: T3 Total - Triiodothyronine 1.26 ng/mL (0.6-1.81); Vitamin B12 280 pg/mL (211-911); Vitamin D,25 Hydroxy 23.1 ng/mL
[2023-06-15 16:11] LABS: ALB/GLOB Ratio 1.1 RATIO (0.9-2.4); AST(SGOT) 23 U/L (15-37); Alanine Aminotransfer ALT/SGPT 30 U/L (13-56); Albumin, Serum 3.8 g/dL (3.2-5.0); Alkaline Phosphatase 77 U/L (45-117); Anion Gap 2 (5-15); BUN 10 mg/dL (7-18); BUN/Creat Ratio 13.7 RATIO (10-20); Calcium,Total 9.4 mg/dL (8.5-10.1); Chloride 109 mmol/L (98-107); Cholesterol 144 mg/dL (200); Creatinine, Serum 0.73 mg/dL (0.55-1.02); EST Glomerular Filtration Rate 96 mL/min (>60); Est Glom Filt Rate - Afr Amer 116 mL/min (>60); Globulin 3.5 g/dL (2.2-4.2); Glucose 77 mg/dL (74-106); High Density Lipoprotein 53 mg/dL; Potassium 3.9 mmol/L (3.5-5.1); Protein, Total 7.3 g/dL (6.4-8.2); Sodium Level 140 mmol/L (136-145); T4 Free Direct 1.36 ng/dL (0.76-1.46); Thyroid Stim Hormone (TSH) 0.78 uIU/mL (0.358-3.74); Triglycerides 152 mg/dL; Very Low Density Lipoprotein 30 mg/dL (5-40)
[2023-06-17 06:09] LABS: HEPATITIS B SURFACE AG Negative (Negative); Hep C Antibodies Non Reactive (Non Reactive); Hepatitis A IgM Antibody Negative (Negative); Hepatitis B Core AB IgM Negative (Negative)
== END | disposition home or self-care (01) ==
LOC: BIMLAB 12:18
PROVIDERS: PCP Internal Medicine; Visit Provider Internal Medicine
DX: Z13.6 Encounter for screening for cardiovascular disorders (principal); Z11.59 Encounter for screening for other viral diseases; E03.9 Hypothyroidism, unspecified; E56.9 Vitamin deficiency, unspecified; Z91.89 Other specified personal risk factors, not elsewhere classified
CPT/HCPCS: 36415; 80053; 80061; 80074; 82306; 82607; 84439; 84443; 84480; 85025